=== PATIENT | female | born 1975 | race Caucasian/White ===

== ENCOUNTER 2018-11-27 08:40 | Emergency (ER) | payer SELFPAY ==
[~2018-11-27] VITALS: Ht 167.6 cm; Wt 90.7 kg
[2018-11-27 09:01] VITALS: BP 112/78
[2018-11-27] MEDS ORDERED: KETOROLAC TROMETH 60MG/2ML VIAL IM ONE (09:30)
== END 2018-11-27 10:11 | disposition home or self-care (01) ==
LOC: ER 08:52
DX: G89.29 Other chronic pain (principal); M54.5 Low back pain
CPT/HCPCS: 96372; 99283; J1885

== ENCOUNTER 2018-12-05 17:46 | Emergency (ER) | payer SELFPAY ==
[~2018-12-05] VITALS: Ht 167.6 cm; Wt 88.5 kg
[2018-12-05 18:21] VITALS: BP 143/83
[2018-12-05] MEDS ORDERED: MEPERIDINE HCL (50 MG/ML) 1 ML VIAL IM ONE (19:00)
[2018-12-05] MEDS ORDERED: ONDANSETRON ODT 4 MG TAB PO ONE (19:00)
== END 2018-12-05 21:00 | disposition home or self-care (01) ==
LOC: ER 17:49
DX: S33.5XXA Sprain of ligaments of lumbar spine, initial encounter (principal); W01.0XXA Fall on same level from slipping, tripping and stumbling without subsequent striking against object, initial encounter; Y93.89 Activity, other specified; Y92.89 Other specified places as the place of occurrence of the external cause; Y99.8 Other external cause status
CPT/HCPCS: 72100

== ENCOUNTER 2018-12-09 16:53 | Emergency (ER) | payer SELFPAY ==
[~2018-12-09] VITALS: Ht 167.6 cm; Wt 88.5 kg
[2018-12-09 17:02] VITALS: BP 126/72
[2018-12-09] MEDS ORDERED: ACETAMINOPHEN 325 MG TAB PO ONE (17:15)
== END 2018-12-09 20:04 | disposition left against medical advice (07) ==
LOC: ER 16:58
DX: R50.9 Fever, unspecified (principal); R05 Cough; J02.9 Acute pharyngitis, unspecified; Z53.21 Procedure and treatment not carried out due to patient leaving prior to being seen by health care provider
CPT/HCPCS: 93005